=== PATIENT | male | born 1945 | race Caucasian/White ===

== ENCOUNTER 2018-03-04 07:51 | Emergency (ER) | END 2018-03-04 10:17 | disposition home or self-care (01) ==

== ENCOUNTER 2018-03-14 22:26 | Emergency (ER) | END 2018-03-15 02:07 | disposition home or self-care (01) ==

== ENCOUNTER 2018-04-01 03:37 | Emergency (ER) | END 2018-04-01 05:55 | disposition home or self-care (01) ==

== ENCOUNTER 2018-04-29 03:32 | Emergency (ER) | END 2018-04-29 05:48 | disposition home or self-care (01) ==